=== PATIENT | female | born 1975 | race Caucasian/White ===

== ENCOUNTER 2018-04-29 12:11 | Emergency (ER) | payer SELFPAY ==
[2018-04-29 12:36] VITALS: BP 126/75; PULSE 71; TEMP 98; BMI 26.5
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
== END 2018-04-29 14:53 | disposition home or self-care (01) ==
LOC: JERFT 12:11
DX: M79.631 Pain in right forearm (principal); M79.672 Pain in left foot; M79.661 Pain in right lower leg; Y04.2XXA Assault by strike against or bumped into by another person, initial encounter; Y93.89 Activity, other specified; Y92.89 Other specified places as the place of occurrence of the external cause; Y99.8 Other external cause status; Y07.03 Male partner, perpetrator of maltreatment and neglect
CPT/HCPCS: 73090-TC-RT-FY; 73590-TC-LT-FY; 73610-TC-LT-FY; 73630-TC-LT; 99281-25